=== PATIENT | female | born 1995 | race Caucasian/White ===

== ENCOUNTER 2018-11-23 16:26 | Emergency (ER) | payer SELFPAY ==
[~2018-11-23] VITALS: Ht 157.5 cm; Wt 64.7 kg
--- NOTE | 2018-11-23 16:50 | NUR ---
NO ANSWER X1
[2018-11-23] MEDS ORDERED: ACETAMINOPHEN 500 MG TABLET ONE (16:59)
[2018-11-23] MEDS ORDERED: SODIUM CHLORIDE FLUSH 10ML SYR IVF ONE (17:00)
[2018-11-23] MEDS ORDERED: ACETAMINOPHEN 500 MG TABLET PO ONE (17:00)
[2018-11-23 17:18] LABS: BASOPHILS # (AUTO) 0.02 x10^3/uL (0-0.1); BASOPHILS % (AUTO) 0 % (0-1); EOSINOPHILS # (AUTO) 0.01 x10^3/uL (0-0.4); EOSINOPHILS % (AUTO) 0 % (1-7); LYMPHOCYTES # (AUTO) 1.37 x10^3/uL (1-3.4); LYMPHOCYTES % (AUTO) 9 % (22-44); MD NO; MEAN CORPUSCULAR HEMOGLOBIN 31.5 pg (27.0-34.8); MEAN CORPUSCULAR HGB CONC 35.1 g/dL (32.4-35.8); MEAN CORPUSCULAR VOLUME 89.8 fL (80-100); MEAN PLATELET VOLUME 8.4 fL (7.4-10.4); MONOCYTES # (AUTO) 1.32 x10^3/uL (0.2-0.8); MONOCYTES % (AUTO) 9 % (2-9); NEUTROPHILS # (AUTO) 12.13 x10^3/uL (1.8-6.8); NEUTROPHILS % (AUTO) 82 % (42-75); PLATELET COUNT 332 x10^3/uL (130-400); RED BLOOD COUNT 4.84 x10^6/uL (3.82-5.3); RED CELL DISTRIBUTION WIDTH 12.7 % (9.6-15.2)
[2018-11-23 17:31] LABS: ALANINE AMINOTRANSFERASE 123 U/L (12-78); ALBUMIN 3.9 g/dL (3.4-5.0); ANION GAP 6 mmol/L (5-15); CALCIUM 8.7 mg/dL (8.5-10.1); CHLORIDE 104 mmol/L (98-107); CREATININE 0.87 mg/dL (0.55-1.02)
[2018-11-23 17:33] LABS: ALKALINE PHOSPHATASE 69 U/L (45-117); BILIRUBIN,TOTAL 1.1 mg/dL (0.2-1.0); TOTAL PROTEIN 8.5 g/dL (6.4-8.2)
[2018-11-23 17:48] LABS: CULTURE INDICATED? YES; MICROSCOPIC INDICATED
[2018-11-23 17:50] LABS: HCG UR SG 1.025 (1.003-1.030)
--- NOTE | 2018-11-23 18:39 | NUR ---
FROM LOBBY TO ROOM
--- NOTE | 2018-11-23 18:45 | NUR ---
PT PRESENTING TO ER FOR FEVER AND UTI SYMPTOMS. PT MEDICATED WITH TYLENOL IN TRIAGE. CONNECTED TO MONITORS, VSS, PT CURRENTLY AFEBRILE. FAMILY AT BEDSIDE. CALL LIGHT WITHIN REACH. AWAITING MD ASSESSMENT AND FURTHER ORDERS
[2018-11-23 18:47] VITALS: BP 104/75
[2018-11-23] MEDS ORDERED: CEFTRIAXONE 1,000 MG ONE (19:14)
[2018-11-23] MEDS ORDERED: LIDOCAINE-MPF 1%, 5ML ONE (19:14)
--- NOTE | 2018-11-23 19:29 | NUR ---
PT MEDICATED PER DEC. AWAITING DC PAPERS
[2018-11-23] MEDS ORDERED: CEFTRIAXONE 1,000 MG IM ONE (19:30)
== END 2018-11-23 19:36 | disposition home or self-care (01) ==
LOC: ED 19:30
DX: N10 Acute pyelonephritis (principal); F17.200 Nicotine dependence, unspecified, uncomplicated
CPT/HCPCS: 36415; 80053; 81001; 81025; 85025; 87077; 87086; 96372; 99283; J0696; 87186

== ENCOUNTER 2019-03-04 14:47 | Emergency (ER) | payer MEDICAID ==
[~2019-03-04] VITALS: Ht 152.4 cm; Wt 55.6 kg
[2019-03-04 15:18] VITALS: BP 111/63
--- NOTE | 2019-03-04 15:36 | NUR ---
UA COLLECTED AND SENT IN TRIAGE.
[2019-03-04 15:50] LABS: BASOPHILS # (AUTO) 0.06 x10^3/uL (0-0.1); BASOPHILS % (AUTO) 0 % (0-1); EOSINOPHILS # (AUTO) 0.04 x10^3/uL (0-0.4); EOSINOPHILS % (AUTO) 0 % (1-7); LYMPHOCYTES # (AUTO) 2.04 x10^3/uL (1-3.4); LYMPHOCYTES % (AUTO) 14 % (22-44); MD NO; MEAN CORPUSCULAR HEMOGLOBIN 31.3 pg (27.0-34.8); MEAN CORPUSCULAR HGB CONC 33.7 g/dL (32.4-35.8); MEAN CORPUSCULAR VOLUME 92.7 fL (80-100); MEAN PLATELET VOLUME 8.3 fL (7.4-10.4); MONOCYTES # (AUTO) 1.28 x10^3/uL (0.2-0.8); MONOCYTES % (AUTO) 9 % (2-9); NEUTROPHILS # (AUTO) 10.83 x10^3/uL (1.8-6.8); NEUTROPHILS % (AUTO) 76 % (42-75); PLATELET COUNT 336 x10^3/uL (130-400); RED BLOOD COUNT 4.88 x10^6/uL (3.82-5.3); RED CELL DISTRIBUTION WIDTH 13.5 % (9.6-15.2)
[2019-03-04 15:54] LABS: HCG UR SG 1.023 (1.003-1.030); MICROSCOPIC AUTO
[2019-03-04 15:55] LABS: CULTURE INDICATED? YES
[2019-03-04 16:01] LABS: ALANINE AMINOTRANSFERASE 142 U/L (12-78); ALBUMIN 3.9 g/dL (3.4-5.0); ANION GAP 5 mmol/L (5-15); CALCIUM 9.2 mg/dL (8.5-10.1); CHLORIDE 103 mmol/L (98-107); CREATININE 0.84 mg/dL (0.55-1.02)
[2019-03-04 16:03] LABS: ALKALINE PHOSPHATASE 78 U/L (45-117); BILIRUBIN,TOTAL 0.9 mg/dL (0.2-1.0); TOTAL PROTEIN 8.5 g/dL (6.4-8.2)
--- NOTE | 2019-03-04 16:34 | NUR ---
na x1 from michael
--- NOTE | 2019-03-04 17:05 | NUR ---
PT. IS NOT ANSWERING.
--- NOTE | 2019-03-04 17:51 | NUR ---
NO ANSWER AFTER MULTIPLE CALLS.
== END 2019-03-04 17:56 | disposition left against medical advice (07) ==
LOC: ED 17:50
DX: R10.9 Unspecified abdominal pain (principal); M54.9 Dorsalgia, unspecified
CPT/HCPCS: 36415; 80053; 81001; 81025; 85025; 87077; 87086; 87186; 99283

== ENCOUNTER 2021-01-25 20:29 | Emergency (ER) | payer MEDICAID ==
[~2021-01-25] VITALS: Ht 152.4 cm; Wt 61.0 kg
[2021-01-25 21:49] LABS: BASOPHILS % (AUTO) 1 % (0-1); EOSINOPHILS % (AUTO) 1 % (1-7); LYMPHOCYTES % (AUTO) 21 % (22-44); MD NO; MEAN CORPUSCULAR HEMOGLOBIN 30.4 pg (27.0-34.8); MEAN PLATELET VOLUME 8.1 fL (7.4-10.4); MONOCYTES % (AUTO) 8 % (2-9); NEUTROPHILS % (AUTO) 70 % (42-75); PLATELET COUNT 303 x10^3/uL (130-400); RED BLOOD COUNT 4.17 x10^6/uL (3.82-5.3)
[2021-01-25 22:01] LABS: ALBUMIN 3.1 g/dL (3.4-5.0); ANION GAP 6 mmol/L (5-15); CHLORIDE 107 mmol/L (98-107)
[2021-01-25 22:18] LABS: CREATININE 0.52 mg/dL (0.55-1.02)
[2021-01-25 22:31] VITALS: BP 112/78
[2021-01-25 22:43] LABS: MICROSCOPIC AUTO
--- NOTE | 2021-01-26 00:17 | NUR ---
PT GIVEN DISCHARGE INSTRUCTIONS AND EDUCATION. PT VERBALIZED UNDERSTANDING. AMBULATED TO DISCHARGE DESK WITH STEADY GAIT.
== END 2021-01-26 00:18 | disposition home or self-care (01) ==
LOC: ED 21:40
DX: O23.11 Infections of bladder in pregnancy, first trimester (principal); O20.0 Threatened abortion; Z3A.09 9 weeks gestation of pregnancy
CPT/HCPCS: 36415; 76801; 80048; 81001; 82040; 84702; 85025; 86901; 87086; 99284